=== PATIENT | female | born 1940 | race Caucasian/White ===

== ENCOUNTER → 2016-10-01 | Outpatient (CLI) | payer MEDICARE ==
[2016-10-02 08:43] LABS: Folate (Folic Acid) >20.0 ng/mL (>3.0); Vitamin B12 >2000 pg/mL (211-946)
[2016-10-06 18:40] LABS: Methylmalonic Acid 273 nmol/L (0-378)
== END ==
LOC: CARL-LAB 08:52
PROVIDERS: Family Medicine
DX: E11.9 Type 2 diabetes mellitus without complications (principal); R60.0 Localized edema; Z86.718 Personal history of other venous thrombosis and embolism; E11.22 Type 2 diabetes mellitus with diabetic chronic kidney disease; N18.9 Chronic kidney disease, unspecified

== ENCOUNTER → 2016-12-26 | Outpatient (CLI) | payer MEDICARE | LOC: CARL-LAB 09:01 | DX: E11.9 Type 2 diabetes mellitus without complications (principal); Z86.718 Personal history of other venous thrombosis and embolism; Z79.01 Long term (current) use of anticoagulants; Z51.81 Encounter for therapeutic drug level monitoring ==

== ENCOUNTER → 2017-01-14 | Outpatient (CLI) | payer MEDICARE ==
[2017-01-14 13:31] LABS: HEMOGLOBIN 11.7 g/dL (12.2-16.2); LYMPH # 1.5 K/mm3 (0.7-4.5); LYMPH % 21.9 % (10-50.0)
[2017-01-14 13:37] LABS: URINE BILIRUBIN - DIPSTICK NEGATIVE (NEG); URINE BLOOD TRACE-INTACT (NEG)
[2017-01-14 16:25] LABS: BUN 48 mg/dL (7-18)
[2017-01-14 16:33] LABS: GFR (ESTIMATED) 24 ML/MIN (59-)
[2017-01-15 07:38] LABS: Vitamin D, 25-Hydroxy 41.5 ng/mL (30.0-100.0)
== END ==
LOC: CARL-LAB 09:03
PROVIDERS: Internal Medicine Nephrology
DX: N18.9 Chronic kidney disease, unspecified (principal); N18.4 Chronic kidney disease, stage 4 (severe); I10 Essential (primary) hypertension; E11.9 Type 2 diabetes mellitus without complications; E11.21 Type 2 diabetes mellitus with diabetic nephropathy; M10.9 Gout, unspecified; E78.5 Hyperlipidemia, unspecified; N25.81 Secondary hyperparathyroidism of renal origin

== ENCOUNTER → 2017-05-27 | Outpatient (CLI) | payer MEDICARE ==
[2017-05-27 13:55] LABS: BUN 44 mg/dL (7-18)
[2017-05-27 13:56] LABS: GFR (ESTIMATED) 27 ML/MIN (59-)
== END ==
LOC: CARL-LAB 08:38
PROVIDERS: Pediatrics
DX: E78.5 Hyperlipidemia, unspecified (principal); Z79.01 Long term (current) use of anticoagulants; Z51.81 Encounter for therapeutic drug level monitoring

== ENCOUNTER → 2017-07-01 | Outpatient (CLI) | payer MEDICARE | LOC: CARL-LAB 08:48 | DX: Z79.01 Long term (current) use of anticoagulants (principal); Z51.81 Encounter for therapeutic drug level monitoring ==

== ENCOUNTER → 2017-07-20 | Outpatient (CLI) | payer MEDICARE ==
[2017-07-20 13:36] LABS: HEMOGLOBIN 12.4 g/dL (12.2-16.2); LYMPH # 1.6 K/mm3 (0.7-4.5); LYMPH % 21.9 % (10-50.0)
[2017-07-20 13:40] LABS: URINE BILIRUBIN - DIPSTICK NEGATIVE (NEG); URINE BLOOD TRACE-INTACT (NEG)
[2017-07-20 14:28] LABS: URINE SQUAMOUS CELLS OCC #/hpf (0-5)
[2017-07-20 15:00] LABS: BUN 53 mg/dL (7-18)
[2017-07-20 15:01] LABS: GFR (ESTIMATED) 23 ML/MIN (59-)
[2017-07-21 06:37] LABS: Vitamin D, 25-Hydroxy 48.5 ng/mL (30.0-100.0)
== END ==
LOC: CARL-LAB 08:27
PROVIDERS: Internal Medicine Nephrology
DX: N18.9 Chronic kidney disease, unspecified (principal); I10 Essential (primary) hypertension; N18.4 Chronic kidney disease, stage 4 (severe); E11.21 Type 2 diabetes mellitus with diabetic nephropathy; M10.9 Gout, unspecified; E78.5 Hyperlipidemia, unspecified; N25.81 Secondary hyperparathyroidism of renal origin; D63.1 Anemia in chronic kidney disease

== ENCOUNTER → 2017-07-31 | Outpatient (CLI) | payer MEDICARE | LOC: CARL-LAB 08:46 | DX: Z79.01 Long term (current) use of anticoagulants (principal); Z51.81 Encounter for therapeutic drug level monitoring ==